=== PATIENT | male | born 1960 | race Caucasian/White ===

== ENCOUNTER 2021-07-23 16:35 | Emergency (ER) | payer MEDICAID ==
[~2021-07-23] VITALS: Ht 177.8 cm; Wt 77.3 kg
[2021-07-23] MEDS ORDERED: OxyCODONE HCL/ACETAMINOPHEN 5-325 MG TABLET PO ONE (17:30)
[2021-07-23 18:04] VITALS: BP 130/80
== END 2021-07-23 18:25 | disposition home or self-care (01) ==
LOC: EMS 16:35
DX: S52.532A Colles' fracture of left radius, initial encounter for closed fracture (principal); W18.39XA Other fall on same level, initial encounter; Y93.89 Activity, other specified; Y92.89 Other specified places as the place of occurrence of the external cause; Y99.8 Other external cause status; F17.210 Nicotine dependence, cigarettes, uncomplicated
CPT/HCPCS: 99283